=== PATIENT | male | born 1945 | race Caucasian/White ===

== ENCOUNTER → 2023-11-24 10:28 | Outpatient (REF) | payer MEDICARE, BC, SELFPAY ==
[2023-11-24 12:30] LABS: PSA, Total - Diagnostic 0.13 ng/ml (0.0-4.0)
== END ==
LOC: REG 10:28
PROVIDERS: ATTENDING PHYSICIAN Specialist; FAMILY PHYSICIAN Family Medicine
DX: C61 Malignant neoplasm of prostate (principal)
CPT/HCPCS: 36415; 84153

== ENCOUNTER → 2024-05-11 12:02 | Outpatient (REF) | payer MEDICARE, BC, SELFPAY ==
[2024-05-11 13:26] LABS: PSA, Total - Diagnostic 0.17 ng/ml (0.0-4.0)
== END ==
LOC: REG 12:02
PROVIDERS: ATTENDING PHYSICIAN Specialist
DX: C61 Malignant neoplasm of prostate (principal)
CPT/HCPCS: 36415; 84153

== ENCOUNTER → 2024-11-17 13:13 | Outpatient (REF) | payer MEDICARE, BC, SELFPAY ==
[2024-11-17 16:17] LABS: PSA, Total - Diagnostic 0.16 ng/ml (0.0-4.0)
== END ==
LOC: REG 13:13
PROVIDERS: ATTENDING PHYSICIAN Family Medicine Geriatric Medicine; FAMILY PHYSICIAN Family Medicine
DX: C61 Malignant neoplasm of prostate (principal)
CPT/HCPCS: 36415; 84153

== ENCOUNTER → 2025-01-28 10:38 | Outpatient (REF) | payer MEDICARE, BC, SELFPAY ==
[2025-01-28 12:21] LABS: Urine Character Clear (Clear)
[2025-01-28 13:05] LABS: Urine White Cell 0-2 /HPF (0-5)
[2025-01-28 13:06] LABS: Urine Squamous Cell 0-2 /LPF (Few)
== END ==
LOC: REG 10:38
PROVIDERS: ATTENDING PHYSICIAN Specialist; FAMILY PHYSICIAN Family Medicine
DX: N39.0 Urinary tract infection, site not specified (principal)
CPT/HCPCS: 81003; 81015; 87086